=== PATIENT | male | born 1990 | race Two or more races ===

== ENCOUNTER 2019-02-20 12:07 | Emergency (ER) | payer MEDICAID ==
[~2019-02-20] VITALS: Ht 185.4 cm; Wt 86.2 kg
[2019-02-20 12:17] VITALS: BP 140/103
== END 2019-02-20 13:34 | disposition home or self-care (01) ==
LOC: ER 12:09
DX: S00.531A Contusion of lip, initial encounter (principal); K05.10 Chronic gingivitis, plaque induced; W51.XXXA Accidental striking against or bumped into by another person, initial encounter; Y93.67 Activity, basketball; Y92.320 Baseball field as the place of occurrence of the external cause; Y99.8 Other external cause status
CPT/HCPCS: 82962-TC